=== PATIENT | male | born 1980 ===

== ENCOUNTER → 2016-11-04 | Outpatient (CLI) | payer OTHER ==
--- NOTE | 2016-11-04 15:53 | CARD ---
APPROVED REPORT Test Type: Exercise Stress Nurse/Tech: elbert sol Test Indications: chest pain Cardiac History and Allergies: HTN,HIGH CHOLESTEROL, SEE EHR Medications: SEE EHR Medical History: REMOTE SMOKING HISTORY, SEE EHR Resting ECG: SR Resting Heart Rate: 46 bpm Resting Blood Pressure: 142/81mmHg Pretest Chest Pain: Typical anginaNo chest pain Nurse/Tech Notes LUNG SOUNDS CLEAR, S1S2 WNL. PT WITHOUT CHEST PAIN. Consent: The procedure was explained to the patient in lay terms. Informed consent was witnessed. Fareed eout was entered into [employer]. History and Stress Test performed by ELBERT SOL Stress Symptoms PT WAS A FULL RUN WHEN REACHING TARGET HEART RATE. POST EXERCISE Reason for Termination: Reached target heart rate Target HR: 157 Max HR: 166 bpm 90% of Maximum Predicted HR: 185 bpm Exercise duration: 13:56 min:sec, 5 Stage Exercise capacity: 14.8METs Max Blood Pressure: 171/75mmHg Blood Pressure response to exercise: Normal blood pressure response during stress. Heart Rate response to exercise: WNL Chest Pain: No. Arrhythmia: No. ST Change: No. INTERPRETATION Stress EKG Conclusion: The resting EKG showed a sinus rhythm with minimal T-wave inversion in V1, AVR and III. With exertion the patient has no significant changes from baseline. No EKG evidence of stress-induced ischemia. <Conclusion> Excellent exercise tolerance. No chest pain with exertion. No significant arrhythmias with exertion. No EKG evidence of stress-induced ischemia. Low risk treadmill stress test.
== END | disposition home or self-care (01) ==
LOC: ECHO 13:56
PROVIDERS: ATTEND Internal Medicine Cardiovascular Disease
DX: R07.89 Other chest pain (principal); I10 Essential (primary) hypertension; E78.00 Pure hypercholesterolemia, unspecified; Z87.891 Personal history of nicotine dependence
CPT/HCPCS: 93017